=== PATIENT | female | born 1950 | race Caucasian/White ===

== ENCOUNTER 2023-01-31 10:00 | Outpatient (RCR) | payer MEDICARE, SELFPAY | END 2023-03-03 14:11 | disposition home or self-care (01) | PROVIDERS: PCP Family Medicine; Visit Provider Family Medicine | DX: M25.552 Pain in left hip (principal); Z51.89 Encounter for other specified aftercare | CPT/HCPCS: 97110; 97140; 97161; 97530 ==

== ENCOUNTER 2023-12-26 06:49 | Outpatient (CLI) | payer MEDICARE, SELFPAY ==
--- NOTE | 2023-12-26 08:42 | W.ANESCHARGE ---
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
== END 2023-12-26 06:50 | disposition home or self-care (01) ==
LOC: OP CLINIC 06:51
PROVIDERS: PCP Family Medicine; Visit Provider Surgery
DX: R10.32 Left lower quadrant pain (principal); D12.2 Benign neoplasm of ascending colon; D12.3 Benign neoplasm of transverse colon; D12.8 Benign neoplasm of rectum
CPT/HCPCS: 00811; 45385; 88305; 99100; J2704

== ENCOUNTER 2024-09-16 17:35 | Observation (INO) | payer MEDICARE, SELFPAY ==
--- OUTSIDE RECORDS SUMMARY | 2024-09-16 17:37 | XMS_ITS | Clinical Summary ---
Author Organization [facility] Address [address] [place] [phone] Phone Care Team Providers Care Information Security Consultant Name Role Phone Jere Diallo MD Primary Care Provider [phone]- [phone] Allergies Active Allergy Reactions Criticality Noted Date Comments Environmental Rhinitis,Cough,Sneezing Low 8 Erythromycin Hives Low 06/30/2017 Lisinopril Cough Low 06/30/2017 Sulfa Drugs Hives,Other Low 07/04/2017 Sulfa allergy: hives and fever. Per 06/30/17, cause hives. Tetracycline Hives Low 06/30/2017 Medications amLODIPine (NORVASC) 5 MG tablet Take 5 mg by mouth two times a day. 0 8 Active glimepiride (AMARYL) 2 MG tablet Take 1 mg by mouth two times a day. 3 8 Active ACCU-CHEK TIMOTHY PLUS STRIP 1 Strip by Does not apply route every 12 hours. 3 8 Active ACCU-CHEK FASTCLIX LANCETS Misc 1 Lancet by Does not apply route every 12 hours. 3 8 Active losartan (COZAAR) 100 MG tablet Take 100 mg by mouth one time a day. 3 7 Active metFORMIN (GLUCOPHAGE) 1000 MG tablet Take 1,000 mg by mouth two times a day. 3 8 Active pantoprazole (PROTONIX) 40 MG delayed-releas e tablet Take 40 mg by mouth one time a day. 8 Active simvastatin (ZOCOR) 20 MG tablet Take 20 mg by mouth one time a day. 1 8 Active spironolactone (ALDACTONE) 100 MG tablet Take 50 mg by mouth two times a day. 3 8 Active verapamil CR (CALAN SR) 180 MG tablet Take 180 mg by mouth two times a day. 3 8 Active Cholecalcifero l (VITAMIN D) 2000 units Capsule Take 4,000 Units by mouth one time a day. Active aspirin 81 MG tablet Take 81 mg by mouth one time a day. Active clobetasol (TEMOVATE) 0.05 % ointment Apply topically two times a day as needed. Apply the smallest amount that will cover affected area. For feet. Active diphenhydrAMIN E (BENADRYL) 25 MG tablet Take 25 mg by mouth two times a day as needed. Active Calcium Carbonate (CALCIUM 600 OR) Take 2 Tabs by mouth one time a day. Active acetaminophen (TYLENOL) 325 MG tabletIndicati ons:Ovarian mass, left Take 2 Tabs by mouth every four hours as needed for Pain. Limit acetaminophen to 4000 mg per day from all sources. 40 Tab 8 Active Active Problems No known active problems Surgical History Surgery Date Site/Laterality Comments BREAST BIOPSY 03/07/1989 - 03/06/1990 Right BIOPSY OF BREAST, NEEDLE CORE 03/07/2012 - 03/06/2013 Left TUBAL LIGATION 12/25/1979 (at [facility]) PARTIAL HYSTERECTOMY 02/13/2001 (at [facility]) APPENDECTOMY 03/07/2000 - 03/06/2001 HYSTERECTOMY 07/12/2017 Abdomen/N/A Procedure: robotic left salpingo oophorectomy , cystoscopy; Surgeon: Juanita Osman DO; Location: [facility]S UPPER GASTROINTESTINAL ENDOSCOPY 10/14/2016 EGD. COLONOSCOPY 10/14/2016 BREAST LUMPECTOMY Bilateral Medical History Medical History Date Comments History of hysterosalpingogram 1979 Hypertension Diabetes mellitus (HCC) Question able control. Gastroesophageal reflux disease Hyperlipidemia CKD (chronic kidney disease) History of chicken pox Hypokalemia 07/04/2017 Obesity Abnormal liver function tests Pe r 07/04/17, has some persistently abnormal mild liver dysfunction; follows with GI. Hepatic function testing in May was normal. Pelvic mass in female 07/04/2017 Overweight Moderately overw eight. Ovarian mass, left Per 07/04/17, signficant incidentally found left ovarian mass (had been found by Nephrology on eval of her HTN). 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 Gender Identity Not on file Sexual Orientation Not on file Obstetrics History Para Term AB IAB SAB Ectopic Molar Multiple Living Live Births 3 2 2 1 1 Date Outcome GA Total Labor Labor/2nd/3rd Weight Sex Type Anes PTL Alyson A1 A5 Name Clin SAB Term Term Last Filed Vital Signs Vital Sign Reading Time Taken Comments Blood Pressure 124/75 07/27/2017 9:12 AM CDT Pulse 90 07/27/2017 9:12 AM CDT Temperature 36.9 C (98.4 F) 07/27/2017 9:12 AM CDT Respiratory Rate 16 07/12/2017 3:29 PM CDT Oxygen Saturation 96% 07/12/2017 3:29 PM CDT Inhaled Oxygen Concentration - - Weight 102.2 kg (225 lb 6.4 oz) 07/27/2017 9:12 AM CDT Height 156.2 cm (5' 1.5) 07/27/2017 9:12 AM CDT Body Mass Index 41.9 07/27/2017 9:12 AM CDT Plan of Treatment Health Maintenance Due Date Last Done Comments CT Colonography 1949 Cologuard 1949 Colonoscopy 1950 Colorectal Cancer Screening 1949 FIT/FOBT 1949 MEDICARE AWV 1950 Sigmoidoscopy 1949 PERTUSSIS (Standing Order) 1968 TETANUS (Standing Order) 1968 Pneumococcal Vaccine: 50+ yr s (Standing Order) (1 of 1 - PCV) 10/28/1999 Shingrix (Zoster recombinant ) vaccine (Standing Order) (1 of 2) 10/28/1999 MAMMO,SCREEN 10/01/2005 10/01/2004 DXA,FEMALES AGE 65 OR GREATER 2014 COVID-19 Vaccine (2023-2 5 season) 2023 04/23/2020 RSV Vaccination (60+ yrs) (Abrysvo/Arexvy) (1 - 1-dose 75+ series) 2024 HPV Vaccine (Standing Order) Aged Out No longer eligible based on patient's age to complete this topic Hepatitis B Vaccine (Standin g Order) Aged Out No longer eligible b ased on patient's age to complete this topic Procedures Procedure Name Priority Date/Time Associated Diagnosis Comments MAMM SCREENING - RETIRED 10/01/2004 9:22 AM CDT from Last 3 Months or Most Recently Relevant to Health Maintenance Results * MAMM SCREENING (10/01/2004 9:22 AM CDT) MAMM SCREENING This Document is currently in Final Status Exam Signs and Symptoms for Radiological Exam from [facility]: * SCREEN MAMMOGRAM: Comparison study is from 10 August 2002. Cluster of calcifications in the left upper outer breast need compression magnification views. There are a few benign appearing calcifications scattered throughout the breast elsewhere. Diffuse fibrocystic appearance. No architectural distortion. Questionable increasing density in the right medial breast on the CC needs compression. BIRADS 0. Incomplete: Need additional imaging evaluation of the right breast for compression of the density and in the left breast for compression magnification views. Computer aided detection system utilized prior to interpretation. Exam interpreted at: [facility], [place] The Interpreting Physician is JULIO JAMES Exam was completed at [facility] Anatomical Region Laterality Modality Mammography 10/01/2004 9:22 AM CDT Jere Diallo MD [facility] MAMMOGRAPHY ORDERABLES Final Result from Last 3 Months or Most Recently Relevant to Health Maintenance Insurance [employer] BLUE MEDICARE COST PART A&B Advance Directives For more information, please contact: [phone] Documents on File Type Date Recorded Patient Burn Center Nurse Expl anation Advance Directive 08/10/2017 9:24 AM ADVANC E DIRECTIVE Care Teams Information Security Consultant Relationship Specialty Start Date End Date Jere Diallo MD [address] [place] [id number] PCP - General 05/18/01
--- OUTSIDE RECORDS SUMMARY | 2024-09-16 17:37 | XMS_ITS | Clinical Summary ---
Author Organization [facility] Address [address] [place] [id number] Care Team Providers Care Encoding Machine Operator Name Role Phone Tamie Le MD Primary Care Provider Allergies Active Allergy Reactions Criticality Noted Date Comments Erythromycin Hives Low 06/30/2017 Levonorgestrel-Ethinyl Estrad Cough,Runny Nose,Other - Describe In Comment Field Low 07/11/2017 Lisinopril Cough Low 06/30/2017 Sulfa (Sulfonamide Antibiotics) Hives,Other - Describe In Comment Field Low 07/04/2017 Sulfa allergy: hives and fever. Per 06/30/17, cause hives. Tetracycline Hives Low 06/30/2017 Medications calcium carbonate (CALCIUM 600 ORAL) Take 2 Tablets by mouth once daily. Active cholecalciferol (VITAMIN D3) 2,000 unit capsule Take 4,000 units by mouth once daily. Active blood-glucose meterIndications:T ype 2 diabetes mellitus without complication, without long-term current use of insulin (HC) As directed. Dispense meter, test strips, lancets covered by pt ins. 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 May use up to 14 days continuously unless otherwise directed to do this more. 118 mL 2 02/24/20 23 Active nystatin 100,000 unit/gram creamIndications:C andidal intertrigo Apply topically to affected area(s) two times daily. 60 g 3 11/08/19 24 Active lancets (Microlet Lancet)Indications :Type 2 diabetes mellitus without complication, without long-term current use of insulin (HC) Dispense item covered by pt ins. E11.9 NIDDM type II - Test 1 time/day 100 Each 3 02/14/20 24 Active blood sugar diagnostic (Contour Next Test Strips) stripIndications:T ype 2 diabetes mellitus without complication, without long-term current use of insulin (HC) Dispense item covered by pt ins. E11.9 NIDDM type II - Test 1 time/day 100 Each 3 02/21/20 24 Active semaglutide (Ozempic) 2 mg/3 mL subcutaneous penIndications:Typ e 2 diabetes mellitus without complication, without long-term current use of insulin (HC) Inject 0.5 mg subcutaneous once weekly. 9 mL 1 05/09/19 25 Active pantoprazole (PROTONIX) 40 mg delayed-release tabletIndications: Chronic GERD Take 1 Tablet (40 mg) by mouth once daily. 90 Tablet 3 05/09/19 25 Active metoprolol succinate (Toprol XL) 50 mg sustained-release tabletIndications: HTN (hypertension) Take 1 Tablet (50 mg) by mouth once daily. 90 Tablet 1 05/09/19 25 Active losartan (COZAAR) 100 mg tabletIndications: HTN (hypertension) Take 1 Tablet (100 mg) by mouth once daily. 90 Tablet 1 05/09/19 25 Active amLODIPine (NORVASC) 5 mg tabletIndications: HTN (hypertension) Take 1 Tablet (5 mg) by mouth once daily. 90 Tablet 1 05/09/19 25 Active metFORMIN (GLUCOPHAGE) 1,000 mg tabletIndications: Type 2 diabetes mellitus without complication, without long-term current use of insulin (HC) Take 1 Tablet (1,000 mg) by mouth two times daily with meals. 180 Tablet 1 05/09/19 25 Active atorvastatin (LIPITOR) 20 mg tabletIndications: Type 2 diabetes mellitus without complication, without long-term current use of insulin (HC),Hyperlipidemi a, unspecified hyperlipidemia type Take 1 Tablet (20 mg) by mouth once daily in the evening. 90 Tablet 3 05/09/19 25 Active aspirin (ECOTRIN) 81 mg enteric coated tabletIndications: Type 2 diabetes mellitus without complication, without long-term current use of insulin (HC) Take 1 Tablet (81 mg) by mouth once daily with a meal. 100 Tablet 3 05/09/19 25 Active nystatin powder powderIndications: Candidal intertrigo Apply 1 Strip topically to affected area(s) three times daily. 60 g 08/08/19 25 Active Active Problems Problem Noted Date Diagnosed Date Gallbladder polyp 06/12/2024 Overview (06/12/2024): Saw Dr. Mayo. Stable 6 month US I saw this patient last fall for evaluation of gallbladder polyp. We decided to continue with gallbladder ultrasounds. Her recent ultrasound 6 months from the first one showed that the polyp is 3 mm (previously measuring 5 mm). We communicated those results to the patient. I would recommend getting an ultrasound in 1 year, 3 years, and 5 years. If the polyp disappears, you can stop doing surveillance ultrasounds. Osteopenia 03/13/2024 Elevated LFTs 11/08/2023 Candidal intertrigo 11/08/2023 Obesity, morbid 10/26/2022 Depression, recurrent 07/21/2022 Type 2 diabetes mellitus wit hout complication, without long-term current use of insulin 12/17/2021 Stage 3a chronic kidney disease 12/17/2021 Chronic GERD 12/17/2021 HTN (hypertension) 12/17/2021 Hyperlipidemia 12/17/2021 Encounters Date Type Department Care Team Description 08/22/2024 10:00 AM CDT Ancillary Procedure [facility] [address] [place] [address] 08/22/2024 Travel 08/07/[address] [address] Tamie Le MD Health Maintenance Update 08/06/[address] [address] Tamie Le MD Refill Request (Nystop Top Pwdr 100,000 60gm) 07/26/[address] [address] Tamie Le MD Refill Request (Semaglutide (Ozempic) 2 mg/3 mL subcutaneous pen ) 07/26/2024 Telephone [facility] [address] [facility] [place] [address] Tamie Le MD Questions 07/26/2024 Refill [facility] [address] [facility] [place] [address] Tamie Le MD Refill Request (Amlodipine) 06/18/2024 Telephone [facility] [address] [facility] [place] [address] Tamie Le MD Prior Authorization (blood sugar diagnostic (Contour Next Test Strips) strip Approved June 18, 2024 to June 18, 2025) from Last 3 Months Immunizations Immunization Administration Dates Next Due COVID-19 VACCINE SPIKEVAX (M ODERNA 50MCG/0.5ML) 12YO+ PFS 05/22/2024,08/31/2023 COVID-19 vaccine (Pfizer-Bio NTech 30mcg/0.3mL) 12YO+ BIVALENT PF, MDV 12/17/2021 COVID-19 vaccine (Pfizer-Bio NTech 30mcg/0.3mL) 12YO+ UGO-SUCROSE PF, MDV 06/16/2021 COVID-19 vaccine (Pfizer-Bio NTech 30mcg/0.3mL) PF, MDV 12/11/2020,05/14/2020,04/23/2020 DT (Age < 7 years) 06/22/1955 Hepatitis A (Adult) 09/30/2021,04/02/2021 Hepatitis B (Adult) 12/07/1996,07/09/1996,1996 Inactivated Polio Vaccine 06/22/1955 Influenza, High-dose Inactivated 024,01/15/2019,01/06/2018,12/24,12/22/2015,12/23/2014 Influenza, High-dose Quadriv alent Inactivated 01/06/2021,02/01/2020 Influenza, IIV3 (Age >=3 years) 12/05/2012,03/23,12/09/2008 Influenza, IIV4 (=>6mos) MDV 03/18/2014 Influenza, Inactivated AIIV4 (Age 65+ Years) Preserv Free 12/08/2022,01/06/2022 MMR 11/21/2007 Pneumococcal Conj 20-valent (Prevnar 20) 07/21/2022 Pneumococcal Poly,23-Valent (Pneumovax) 11/21/2007 Pneumococcal conj 13-Valent (Prevnar 13) 11/25/2014 RSV, Bivalent Vaccine Recons tituted (Abrysvo 120MCG/0.5mL) 12/14/2022 Td, Preservative Free (age >= 7 Years) 5 Tdap 05/24/2022,05/22/2012 Zoster (Shingrix-RZV, recombinant) 06/09/2021, Zoster (Zostavax-ZVL, live) 06/09/2012 Family History Medical History Relation Name Comments Diabetes Father Hypertension Father COPD Mother Diabetes Mother Hypertension Mother Cancer-breast No Family History Cancer-ovarian No Family History Relation Name Status Comments Father Mother Social History Tobacco Use Types Packs/Day Years Used Date Smoking Tobacco: Never Smokeless Tobacco: Never Tobacco Cessation:Counseling Given: Yes Alcohol Use Standard Drinks/Week Comments Yes 0 (1 standard drink = 0.6 oz pur e alcohol) less than monthly PHQ-2 Answer Date Recorded PHQ-2 TOTAL SCORE 0 02/07/2024 Social Connections Answer Date Recorded Do you often feel lonely or isolated from those around you? 0 02/07/2024 Alcohol Use Answer Date Recorded How often do you have a drink containing alcohol ? 1 04/29/2023 How many drinks containing a lcohol do you have on a typical day when you are drinking? 0 04/29/2023 How often do you have five or more drinks on one occasion? 0 04/29/2023 Financial Resource Strain Answer Date R ecorded Difficulty of Paying Living Expenses 3 02/07/2024 Difficulty of Paying Living Expenses Not on file 02/07/2024 Food Insecurity Answer Date Recorded Do you worry your food will run out before you are able to buy more? 1 02/07/2024 Transportation Needs Answer Date Record ed Does lack of transportation keep you from medica l appointments? 1 02/07/2024 Does lack of transportation keep you from work, meetings or getting things that you need? 1 02/07/2024 Housing Stability Answer Date Recorded What is your housing situation today? 1 02/07/2024 Utilities Answer Date Recorded Do you have trouble paying f or utilities (for example, heat, electricity, water, phone)? 1 02/07/2024 Comments No Sex and Gender Information Value Date Recorded Sex Assigned at Not on file Legal Sex Female 3:25 PM CDT Gender Identity Not on file Sexual Orientation Not on file Obstetrics History Para Term AB IAB SAB Ectopic Multiple Livin g Live Births 3 2 2 1 1 Date Outcome GA Total Labor Labor/2nd/3rd Weight Sex Type Anes PTL Alyson A1 A5 Name Clin SAB Term Term Last Filed Vital Signs Vital Sign Reading Time Taken Comments Blood Pressure 142/74 05/22/2024 10:26 AM CDT Pulse 72 05/22/2024 10:26 AM CDT Temperature 36.8 C (98.3 F) 01/02/2024 3:23 PM CDT Respiratory Rate - - Oxygen Saturation 98% 05/08/2024 10:03 AM [facility] DELIVERY Inhaled Oxygen Concentration - - Weight 84.6 kg (186 lb 6.4 oz) 05/08/2024 10:03 AM [facility] DELIVERY Height 154.5 cm (5' 0.83) 02/07/2024 9:32 AM CS T Body Mass Index 35.42 02/07/2024 9:32 AM [facility] DELIVERY Plan of Treatment Upcoming Encounters Date Type Department Care Team (Late st Contact Info) Description 12/04/2024 9:10 AM CDT Office Visit [facility] [address] [place] [address] Tamie Le MD [address] [place] [address] 02/08/2025 9:10 AM [facility] DELIVERY Office Visit [facility] [address] [place] [address] Tamie Le MD [address] [place] [address] Health Maintenance Due Date Last Done Comments Hepatitis C screening for ag e 18-79 10/28/1968 Influenza Vaccine (#1) 2024 , 12/08/2022, 01/06/2022, Additional history exists BMI (ht and wt on same day) for age 18+ 02/06/2025 02/07/2024, 04/29/2023, 02/02/2023, Additional history exists Medicare Wellness for age 65+ 02/07/2025, 02/02/2023, 01/06/2022 Depression screening for age 12+ 02/08/2025 02/09/2024, 02/07/2024, 02/03/2023, Additional history exists Mammogram for age 45-75 08/22/2025 08/23/19, 08/22/2023, 08/09/2022, Additional history exists Lipids for age 45-75 02/06/2029 02/07/2024, 02/02/2023, 01/06/2022 Tetanus booster 05/24/2032 05/24/2022, 05/05, 12/17/2004 Colonoscopy through age 75 12/26/203312/26, 12/26/2023, 10/14/2016 (Completed outside of [facility]), Additional history exists Hepatitis B series for 19+ Completed 12/07, 07/09/1996, 06/08/1996 Zoster (shingles) series for age 50+ Completed 06/09/2021, 04/02/2021, 06/09/2012 Pneumococcal series for age 50+ Completed 07/21/2022, 11/25/2014, 11/21/2007 RSV vaccine for adults or Completed 12/14/2022 DEXA/DXA scan for age 65+ Completed 2024, 10/22/2021 (Completed outside of [facility]) COVID-19 vaccine series Completed 05/23/19, 12/07/2023, 08/31/2023, Additional history exists Procedures Procedure Name Priority Date/Time Associated Diagnosis Comments XR MAMMO EILEEN BILAT SCREEN Routine 08/22/2024 10:11 AM CDT Visit for screening mammogram XR DXA BONE DENSITY 2 SITES AXIAL Routine 03/12/2024 10:06 AM [facility] DELIVERY Menopause LIPID PANEL W REFLEX MEASURED LDL Routine 02/07/2024 9:14 AM [facility] DELIVERY Hyperlipidemia, unspecified hyperlipidemia type COLONOSCOPY DIAGNOSTIC Routine 12/27/2023 7:52 AM CDT Left lower quadrant abdominal pain from Last 3 Months or Most Recently Relevant to Health Maintenance Results * XR MAMMO EILEEN BILAT SCREEN (08/22/2024 10:11 AM CDT) Anatomical Region Laterality Modality BREASTS, Breast Left, Breast Right Bilateral Mammography Impressions 08/22/2024 2:00 PM CDT There is no radiographic evidence for malignancy. Recommend annual mammograms. MAMMOGRAM ASSESSMENT: ACR 1 Negative PATIENTS: You will also receive a letter with your examination results in an easy to read format. If you have questions about your results, please contact your referring provider. Narrative 08/22/2024 2:00 PM CDT For Patients: As a result of the Century Cures Act, medical imaging exams and procedure reports are released immediately into your electronic medical record. You may view this report before your referring provider. If you have questions, please contact your health care provider. XR MAMMO EILEEN BILAT SCREEN [[id number]] CLINICAL HISTORY: This is an asymptomatic 73 y.o. patient. INDICATION FOR EXAM: Mammogram Screening. TECHNIQUE: CC and MLO views were obtained. This study was evaluated with the assistance of Computer-Aided Detection. Breast Tomosynthesis was used in interpretation. COMPARISON FILM: Yes 08/22/23 [facility] 08/09/22 [facility] FINDINGS: The breasts are heterogeneously dense, which may obscure small masses. There are no dominant masses, suspicious micro calcifications or areas of architectural distortion. us Tamie Le MD MAMMO Final Resul t * (ABNORMAL) XR DXA BONE DENSITY 2 SITES AXIAL (03/12/2024 10:06 AM [facility] POST DELIVERY) Anatomical Region Laterality Modality Spine, HIPS, HIPL, HIPR Other Impressions 03/13/2024 1:54 PM [facility] DELIVERY Osteopenia. RECOMMENDATIONS: The National Osteoporosis Foundation recommends pharmacologic treatment for patients with T-scores of -2.5 or less, patients with prior history of fragility fractures, or patients with 10-year probability of greater than 3% at hips or greater than 20% of suffering major osteoporotic fractures. Recommend continued optimization of calcium and vitamin D intake through dietary means and/or supplementation and regular exercise. Repeat scan recommended in 3-5 years. Evelyn Lam PA-C [facility] 03/13/2024 Narrative 03/13/2024 1:54 PM PARCEL POST DELIVERY For Patients: Results are automatically released to your [facility] ([employer]) account once available, in compliance with federal regulations. This means that you may see your results before your provider has had a chance to review them. Please allow 2-3 business days for your provider to comment on the results. XR DXA Bone Mineral Density (BMD) EXAM LOCATION: [address] [address] PATIENT NAME: Alda Diaz DATE OF : 1950 EXAM DATE: 03/12/2024 REQUESTING PROVIDER: Tamie Le MD GENDER AT : female HEIGHT: 5' 0.83 (02/07/2024) WEIGHT: 194 lb 6.4 oz (02/07/2024) MENOPAUSAL STATUS: Postmenopausal RACE/ETHNICITY: White RISK FACTORS: White Race CURRENT MEDICATION FOR BONE LOSS: NONE INDICATION: Follow-up of existing osteopenia and Post-Menopause COMPARISON DATE(S): None DXA scans are compared to prior studies for a patient only when the two (or more) studies were performed on the same scanner. It is not possible to compare data generated on one scanner to data from another because there are not standards in DXA equipment. This applies even if the two scanners are made by the same cash applications coordinator. PROCEDURE: Dual-energy x-ray absorptiometry performed with routine technique. Reporting is completed in the form of a T-score. The T-score represents the standard deviation from peak bone mass based on young healthy adult. A Z-score is used for diagnosis in premenopausal women, and for men under the age of 50. FINDINGS: RESULT LUMBAR SPINE L1 - L2 BMD: 1.235 g/cm2 T-Score: + 0.5 Z-Score: + 1.5 Change from prior: None RESULTS FEMUR Left femoral neck BMD: 0.890 g/cm2 T-Score: - 1.1 Z-Score: + 0.3 Change from prior: None Right femoral neck BMD: 0.922 g/cm2 T-Score: - 0.8 Z-Score: + 0.6 Change from prior: None Left hip BMD: 0.129 g/cm2 T-Score: + 0.2 Z-Score: + 1.3 Change from prior: None Right hip BMD: 0.970 g/cm2 T-Score: - 0.3 Z-Score: + 0.8 Change from prior: None WHO criteria: Normal: T-score at or above -1 SD Osteopenia: T-score between -1.1 and -2.4 SD Osteoporosis: T-score at or below -2.5 SD FRAX RISK CALCULATION (USED FOR OSTEOPENIA ONLY): 10-year probability of major osteoporotic fracture: 8.9%. 10-year probability of hip fracture: 1.3%. us Tamie Le MD DEXA Final Resul t * (ABNORMAL) LIPID PANEL W REFLEX MEASURED LDL (02/07/2024 9:14 AM PARCEL POST DELIVERY) [facility] CHOLESTEROL, TOTAL 106 <200 mg/dL [facility] HDL CHOLESTEROL 44(L) > OR = 50 mg/dL [facility] TRIGLYCERIDES 100 <150 mg/dL [facility] LDL-CHOLESTEROL 43 mg/dL (calc) [facility] Comment: Reference range: <100 Desirable range <100 mg/dL for primary prevention; <70 mg/dL for patients with CHD or diabetic patients with > or = 2 CHD risk factors. LDL-C is now calculated using the Elaine calculation, which is a validated novel method providing better accuracy than the Friedewald equation in the estimation of LDL-C. Og SS et al. AGUSTIN. 2013;310(19): 1500-4738 (http://education.ZYB/faq/VMI616) CHOL/HDLC RATIO 2.4 <5.0 (calc) [facility] [place] NON HDL CHOLESTEROL 62 <130 mg/dL (calc) [facility] Comment: For patients with diabetes plus 1 major ASCVD risk factor, treating to a non-HDL-C goal of <100 mg/dL (LDL-C of <70 mg/dL) is considered a therapeutic option. Blood BLOOD SPECIMEN / Unknown 02/07/2024 9:14 AM PARCEL POST DELIVERY 02/07/2024 9:15 AM [facility]CEL POST DELIVERY Tamie Le MD CHEMISTRY Final Resul t [facility] [facility] [address] [place] [address], [facility] [address] [place] [address] * COLONOSCOPY SCREENING (12/26/2023 12:00 AM CDT) Jose F Mayo MD GI PROCEDURE ORD Final Res ult from Last 3 Months or Most Recently Relevant to Health Maintenance Insurance [facility] MEDICARE ADVANTAGE MR Advance Directives Documents on File Type Date Recorded Patient Endodontic Assistant Expl anation Healthcare Directive 04/22/2022 1:57 PM HE ALTHCARE DIRECTIVE [facility] 04/22/2022 Care Teams Encoding Machine Operator Relationship Specialty Start Date End Date Tamie Le MD [address] [place] [address] PCP - General Family Practice 07/28/21
[2024-09-16 17:44] VITALS: BP 180/82; PULSE 90; RESP 18; TEMP 36.7; O2SAT 90; BMI 35.0
--- NOTE | 2024-09-16 18:34 | ED_ITS ---
HPI - Neuro Symptoms/Deficit General Time Seen by Provider: 18:34 Date Seen: 09/16/24 Chief Complaint: Neuro Symptoms/Altered Deficit Stated Complaint: memory loss as of today Time Seen by Provider: 09/16/24 18:20 Source: patient, family and RN notes reviewed Mode of arrival: ambulatory Limitations: no limitations History of Present Illness HPI Narrative: This 73-year-old female is accompanied in by family with concern of confusion. Family notes that she has had significant memory loss, feel like symptoms started today. She does reside with her vzmxwnqj-ao-orb and son whom are present with her. Her pillowcase is intact, she did not take her pills listed for today. She has no recollection if she took them or not. She has not been sick with anything, no fevers, no trauma or falls noted. She did have an episode transient global amnesia last fall in [place]. She knows it is the year 2019 for 2024, thinks it is probably September because she has not had her birthday yet. She does not remember Easter or [place] from this past year, does have some recollection of Thanksgiving. She does not remember events from this last week, does not remember going anywhere with her family. She believes the president is [place]. She knows that she is confused, knows that she can not remember things but does not seem to cause her significant anxiety at this time. She is quite pleasant. Related Data Allergies Allergy/AdvReac Type Severity Reaction Status Date / Time erythromycin base Allergy Verified 12/26/23 09:30 levonorgestrel Allergy Verified 12/26/23 09:30 lisinopril Allergy Verified 12/26/23 09:30 Sulfa (Sulfonamide Allergy Verified 12/26/23 09:30 Antibiotics) tetracycline Allergy Verified 12/26/23 09:30 Review of Systems Status of ROS: Reports: 6 or more systems reviewed and unremarkable except as noted in History and below Exam Const: Vital Signs, click to edit/add: Vital Signs - 24 hr 09/16/24 17:44 09/16/24 19:33 Temperature 98.1 F Pulse Rate [Right Radial] 90 93 Respiratory Rate 18 16 Blood Pressure [Ri ght Upper Arm] 180/82 H 145/84 H Pulse Oximetry 90 96 Oxygen Delivery Me thod Room Air Room Air This 73-year-old female is very pleasant, alert, interactive. Please see under HPI for some of her memory discussion. Sclera clear, extraocular muscles intact, symmetrical facial function, speech is normal. No visual changes on gross confrontation. Lungs are clear, good air entry, no wheezing or crackles, no tachypnea, no accessory muscle use. CV regular rate and rhythm, no murmur, normal S1-S2, no S3-S4. Abdomen is soft, nontender, nondistended, no organomegaly, rebound or guarding. Patient reported the was ambulatory into the ED. Strength is 5/5 and symmetric throughout upper and lower extremities. Normal light touch sensation. No dysmetria noted, no tremors. 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 Will do a head CT, get basic labs. She is hemodynamically stable. Doubtful that this is an active ischemic stroke. She has no other focal deficits, just memory. Reevaluation(s) Time of Reevaluation #1: 19:25 Reevaluation #1: Did update daughter and a and son about neurology recommendations for hospitalization overnight. We discussed MRI of her brain tomorrow, formal neurology consult from [facility]. They are in agreement with this. I will certainly update them of any abnormalities or concerns of pending tests that are coming back here in the ER. Consultations Consultation #1: Did review case with Dr. Jaime, he is aware that we have a head CT pending. Did review that this patient was diagnosed with episode of transient global amnesia this past year. He wonders if there could be dementia. He thinks patient should be kept overnight, do MRI a brain noncontrast tomorrow and they will do a consult on her tomorrow. Will let them know an update the hospitalist. If there is anything concerning on her head CT or anything else, will update him in the interim. Time: 18:59 Consultation #2: Did briefly update the hospitalist Dr. Goel regarding the neurology recommendations. He will see this patient when he is next able to. Time: 19:26 Vital Signs Vital signs: Initial Vital Signs Temperature 98.1 F 09/16/24 17:44 Temperature Source Temporal Artery Scan 09/16/24 17:44 Pulse Rate 90 07/13/25 17:44 Pulse Rhythm Regular 09/16/24 17:44 Pulse Strength 3+ Normal 09/16/24 17:44 Respiratory Rate 18 09/16/24 17:44 Blood Pressure 180/82 H 09/16/24 17:44 Blood Pressure Mean 114 H 09/16/24 17:44 Blood Pressure Position Sitting 09/16/24 17:44 Pulse Oximetry 90 09/16/24 17:44 Oxygen Delivery Method Room Air 09/16/24 17:44 Vital Signs Temperature 98.1 F 09/16/24 17:44 Pulse Rate 90 09/16/24 17:44 Respiratory Rate 18 09/16/24 17:44 Blood Pressure 180/82 H 09/16/24 17:44 Pulse Oximetry 90 09/16/24 17:44 Oxygen Delivery Method Room Air 09/16/24 17:44 Temperature 98.1 F 09/16/24 17:44 Pulse Rate 93 09/16/24 19:33 Respiratory Rate 16 09/16/24 19:33 Blood Pressure 145/84 H 09/16/24 19:33 Pulse Oximetry 96 09/16/24 19:33 Oxygen Delivery Method Room Air 09/16/24 19:33 MDM - Neuro Symptoms/Deficit Lab Data Attestation: I reviewed the patient's lab results. Labs: Lab Results 09/16/24 Range/Units 18:53 WBC 9.52 (4.50-11.00) K/uL RBC 4.42 (4.00-5.20) m/uL Hgb 13.8 (12.0-16.0) gm/dL Hct 40.8 (33.0-51.0) % MCV 92 (80-100) fL MCH 31 (26-34) pg MCHC 34 (32-36) gm/dL RDW Coeff of Chris 11.4 L (11.5-15.5) % Plt Count 177 (140-440) K/uL Neut % (Auto) 71.0 (42.0-72.0) % Lymph % (Auto) 20.8 (20-44) % [place] % (Auto) 6.4 (0.0-11.0) % Eos % (Auto) 1.3 (0.0-7.0) % Baso % (Auto) 0.3 (0.0-3.0) % Neut # (Auto) 6.76 (1.7-7.0) K/uL Lymph # (Auto) 1.98 (0.90-2.90) K/uL [place] # (Auto) 0.60 (0.00-0.90) K/UL Eos # (Auto) 0.12 (0.00-0.50) K/uL Baso # (Auto) 0.03 (0.00-0.30) K/uL Abs Immat Gran (auto) 0.02 (0.00-0.30) K/uL Imm/Tot Granulo (auto) 0.2 % Sodium 138 (135-149) mmol/L Potassium 3.7 (3.6-5.1) mmol/L Chloride 105 (96-114) mmol/L Carbon Dioxide 23 (20-32) mmol/L Anion Gap 10 (7-15) mEq/L BUN 20 (7-30) mg/dL Creatinine 1.1 (0.5-1.5) mg/dL Estimated Creat Clear 35.49 Estimated GFR 53 ml/min Glucose 95 (60-115) mg/dL Lactate 2.6 H (0.5-1.9) mmol/L Calcium 10.1 (8.4-10.6) mg/dL Total Bilirubin 0.7 (0.1-1.5) mg/dL AST 39 H (12-35) U/L ALT 32 (4-35) U/L Alkaline Phosphatase 82 (40-150) U/L C-Reactive Protein < 0.5 L (0.5-1.0) mg/dL Total Protein 7.0 (6.0-8.3) g/dL Albumin 4.2 (3.3-5.0) g/dL Imaging Data CT scan - head: Attestation: I have reviewed the pertinent imaging results. Radiologist's impression: Patient: JEANIE SOTO Facility:?[facility] Patient ID:?[id number] Site Patient ID:?[id number]. Site :?[id number] Study:?CT-Head W/O-09/16/2024 7:29:04 PM Ordering Physician:Yue Dallas Final Report: INDICATION: Memory loss. TECHNIQUE: Non-contrast CT of the head is submitted. No comparisons. FINDINGS: The ventricles, sulci and gyri are of normal size, shape and contour. Midline structures are centrally located. No convincing evidence of intra- or extra- axial fluid collections. IMPRESSION: 1. No radiographic evidence of acute intracranial abnormalities. Please note that all CT scans at this facility use dose modulation, iterative reconstruction, and/or weight-based dosing when appropriate to reduce radiation dose to as low as reasonably achievable. Dictated by Aguilar Gonzalez MD @ 09/16/2024 7:55:47 PM (Electronic Signature) Discharge Plan Discharge Clinical Impression: Amnesia memory loss Patient Disposition: Admitted As Observation Condition: Unchanged
--- NOTE | 2024-09-16 18:43 | CRLHL7_ITS ---
For Patients: As a result of the Century Cures Act, medical imaging exams and procedure reports are released immediately into your electronic medical record. You may view this report before your referring provider. If you have questions, please contact your health care provider. INDICATION: Memory loss. TECHNIQUE: Non-contrast CT of the head is submitted. No comparisons. FINDINGS: The ventricles, sulci and gyri are of normal size, shape and contour. Midline structures are centrally located. No convincing evidence of intra- or extra-axial fluid collections. IMPRESSION: 1. No radiographic evidence of acute intracranial abnormalities. Please note that all CT scans at this facility use dose modulation, iterative reconstruction, and/or weight-based dosing when appropriate to reduce radiation dose to as low as reasonably achievable. Dictated by Aguilar Gonzalez MD @ 09/16/2024 7:55:47 PM (Electronically Signed)
[2024-09-16 19:01] LABS: Lactate* 2.6 mmol/L (0.5-1.9)
[2024-09-16 19:07] LABS: Hematocrit 40.8 % (33.0-51.0); Hemoglobin* 13.8 gm/dL (12.0-16.0); Immature Granulocytes Abs Auto 0.02 K/uL (0.00-0.30); Immature Granulocytes Pct Auto 0.2 %; Lymphocytes Absolute Auto 1.98 K/uL (0.90-2.90); Mean Corpuscular HGB Conc 34 gm/dL (32-36); Mean Corpuscular Hemoglobin 31 pg (26-34); Mean Corpuscular Volume 92 fL (80-100); RDW Coefficient of Variation % 11.4 % (11.5-15.5); Red Blood Count 4.42 m/uL (4.00-5.20); White Blood Count* 9.52 K/uL (4.50-11.00)
[2024-09-16 19:13] LABS: Slide Review Reflex No
[2024-09-16 19:21] LABS: Albumin* 4.2 g/dL (3.3-5.0); Chloride* 105 mmol/L (96-114); Potassium* 3.7 mmol/L (3.6-5.1); Sodium* 138 mmol/L (135-149)
[2024-09-16 19:24] LABS: Alanine Aminotransferase* 32 U/L (4-35); Anion Gap 10 mEq/L (7-15); Aspartate Amino Transferase* 39 U/L (12-35); Blood Urea Nitrogen* 20 mg/dL (7-30); Carbon Dioxide* 23 mmol/L (20-32); Creatinine* 1.1 mg/dL (0.5-1.5); Est. Creatinine Clearance* 35.49; Estimated Glomerular Filt Rate 53 ml/min
[2024-09-16 19:25] LABS: Alkaline Phosphatase* 82 U/L (40-150); Bilirubin Total* 0.7 mg/dL (0.1-1.5); Calcium* 10.1 mg/dL (8.4-10.6); Glucose* 95 mg/dL (60-115); Total Protein* 7.0 g/dL (6.0-8.3)
[2024-09-16 19:33] VITALS: BP 145/84; PULSE 93; RESP 16; O2SAT 96
[2024-09-16 20:22] LABS: TSH With Reflex to FT4* 0.544 uIU/mL (0.270-4.200)
[2024-09-16 20:46] LABS: Ethanol* < 0.01 % (0.01-0.03)
[2024-09-16] MEDS: METFORMIN 1,000 MG TABLET 1000 MG PO (21:30)
[2024-09-16] MEDS: SODIUM CHLORIDE 0.9 % (FLUSH) 10 ML SYRINGE 5 ML IVF (21:31)
--- NOTE | 2024-09-16 21:39 | PM.IMHP1 ---
Assessment and Plan Assessment and plan (1) Transient global amnesia: Problem comment: Family reports an episode in November 2023 similar to current episode but of shorter duration. Seen in [facility] ED in [place] Status: Acute (2) Hypertension: Status: Acute (3) Diabetes mellitus type 2, controlled: Problem comment: Hemoglobin A1c in May 2024 was 6.7 Status: Acute Plan 73-year-old female admitted with an episode of what appears to be transient global amnesia. This is probably a recurrent episode for her. Tele radiology will consult tomorrow after MRI of the brain. Ongoing monitoring of vital signs, diabetes, neurologic status in the meantime. Total Time Spent Total Time Spent: Total time spent is 75 minutes in reviewing outside records, coordination of care and discussing with patient and family ongoing evaluation management of amnesia Hospitalist- H&P: HPI History of Present Illness Date Seen: 09/16/24 Chief complaint: memory loss as of today Narrative: Alda Diaz is a 73 year old female with diabetes, hypertension, history of transient global amnesia presents with onset this afternoon of another episode of amnesia. She lives with her son and omkoxpau-wu-wms. She seemed to be fine when she got up this morning. She had breakfast then went outside to [place] the garden and came back in to the house and folded some laundry. She then went to take a nap. She had an emesis or 2 and then finished her nap around 4:00 a.m. when she awoke from her nap she did not remember anything that happened that day or the past few days. Other than her emesis she had not had any other symptoms of illness. She did feel hot after coming in from weeding the garden. She did not check her blood sugar during the day today. Unclear if she took her medications. Family notes that her medications still in her pillbox from today. Family reports she had an episode of transient global amnesia while she was in [place] last November. She went to the emergency department at [facility]. Her symptoms cleared while she was there and she was discharged to follow-up with a neurologist in the [facility]. Family reported that she did that but I am currently unable to view records from [facility] or a neurology visit from last fall. Review of Systems Narrative: At this time she reports feeling fine without any concerns. Family is not aware that she had any illnesses leading up to this event except as noted above [facility] Medical History (Updated 09/16/24 @ 21:46 by Idris Goel MD) Gallbladder polyp ?K82.4 - Cholesterolosis of gallbladder (ICD-10) Obesity ?E66.9 - Obesity, unspecified (ICD-10) Depression ?F32.A - Depression, unspecified (ICD-10) Hyperlipidemia ?E78.5 - Hyperlipidemia, unspecified (ICD-10) Stage 3 chronic kidney disease ?N18.30 - Chronic kidney disease, stage 3 unspecified (ICD-10) NAFLD (nonalcoholic fatty liver disease) ?K76.0 - Fatty (change of) liver, not elsewhere classified (ICD-10) Transient global amnesia ?G45.4 - Transient global amnesia (ICD-10) Hypertension ?I10 - Essential (primary) hypertension (ICD-10) Diabetes mellitus type 2, controlled ?E11.9 - Type 2 diabetes mellitus without complications (ICD-10) Surgical History (Updated 09/16/24 @ 21:46 by Idris Goel MD) History of total abdominal hysterectomy and bilateral salpingo-oophorectomy ?Z90.710 - Acquired absence of both cervix and uterus (ICD-10) ?Z90.722 - Acquired absence of ovaries, bilateral (ICD-10) ?Z90.79 - Acquired absence of other genital organ(s) (ICD-10) History of appendectomy ?Z90.49 - Acquired absence of other specified parts of digestive tract (ICD-10) Family History (Updated 09/16/24 @ 21:47 by Idris Goel MD) Mother COPD (chronic obstructive pulmonary disease) Diabetes High blood pressure Father Diabetes High blood pressure Social History (Updated 09/16/24 @ 21:48 by Idris Goel MD) Narrative: Previously lived in [place] now living with son Nghia and vbbetdbv-hc-eat, Melanie. Son Nghia and daughter Ge are healthcare power of traffic law attorney. Code status is full. She does not smoke. She rarely drinks alcohol. Meds Home Medications and Allergies Home Medications ?Medication ?Instructions ?Recorded ?Confirmed ?Type amlodipine 10 mg tablet 10 mg PO DAILY 09/16/24 History Held on 09/16/24. Instructions: . amlodipine 5 mg tablet 5 mg PO DAILY 09/16/24 09/16/24 History aspirin 81 mg tablet,delayed 81 mg PO DAILY 09/16/24 09/16/24 History release atorvastatin 20 mg tablet 20 mg PO DAILY 09/16/24 09/16/24 History losartan 100 mg tablet 100 mg PO DAILY 09/16/24 09/16/24 History metformin 1,000 mg tablet 1,000 mg PO BID 09/16/24 09/16/24 History metoprolol succinate 50 mg 50 mg PO DAILY 09/16/24 09/16/24 History tablet,extended release 24 hr nystatin 100,000 unit/gram topical topical BID 09/16/24 History cream semaglutide 0.25 mg or 0.5 mg (2 0.5 mg subcut .weekly 09/16/24 09/16/24 History mg/3 mL) subcutaneous pen injector ([email or web address]) Allergies Allergy/AdvReac Type Severity Reaction Status Date / Time erythromycin base Allergy Verified 12/26/23 09:30 levonorgestrel Allergy Verified 12/26/23 09:30 lisinopril Allergy Verified 12/26/23 09:30 Sulfa (Sulfonamide Allergy Verified 12/26/23 09:30 Antibiotics) tetracycline Allergy Verified 12/26/23 09:30 Exam Narrative: Exam Narrative: She is alert and appears in no distress. She is pleasant. She gives her own history but is unable to recall any of the events of today or the last few days. This history is obtained from her son. Head is without evidence of trauma. Eyes are normal. Extraocular movements are full. Pupils are equal round and reactive to light and accommodation. Visual rodriguez are intact. No facial asymmetry. Oropharynx is normal. Tongue is midline. Intact facial sensation bilaterally. Intact hearing bilaterally. Neck is supple without mass or adenopathy. Respirations are clear to auscultation. Cardiovascular: S1, S2, regular rate and rhythm. No murmur gallop or rub. Abdomen: Bowel sounds active. Abdomen is soft without tenderness or mass. External genitalia normal. Extremities are normal with intact pulses and sensation. Feet are slightly cool to touch with good capillary refill. No skin rash. Strength in upper and lower extremities is full and symmetric. Dvguyr-dsaa-rjuiil and heel-perales is normal. Const: Vital Signs, click to edit/add: Vital Signs - 24 hr 09/16/24 17:44 09/16/24 19:33 Temperature 98.1 F Pulse Rate [Right Radial] 90 93 Respiratory Rate 18 16 Blood Pressure [Ri ght Upper Arm] 180/82 H 145/84 H Pulse Oximetry 90 96 Oxygen Delivery Me thod Room Air Room Air Documenting provider has reviewed patient's vital signs: yes Hospitalist - H&P: Result Labs Labs: Short CBC 09/16/24 Range/Units 18:53 WBC 9.52 (4.50-11.00) K/uL Hgb 13.8 (12.0-16.0) gm/dL Hct 40.8 (33.0-51.0) % Plt Count 177 (140-440) K/uL BMP 09/16/24 18:53 Sodium 138 Potassium 3.7 Chloride 105 Carbon Dioxide 23 BUN 20 Creatinine 1.1 Glucose 95 Calcium 10.1 Liver Function 09/16/24 Range/Units 18:53 Total Bilirubin 0.7 (0.1-1.5) mg/dL AST 39 H (12-35) U/L ALT 32 (4-35) U/L Alkaline Phosphatase 82 (40-150) U/L Albumin 4.2 (3.3-5.0) g/dL Imaging CT scan - head: Radiologist's impression: INDICATION: Memory loss. TECHNIQUE: Non-contrast CT of the head is submitted. No comparisons. FINDINGS: The ventricles, sulci and gyri are of normal size, shape and contour. Midline structures are centrally located. No convincing evidence of intra- or extra-axial fluid collections. IMPRESSION: 1. No radiographic evidence of acute intracranial abnormalities.
[2024-09-16 21:44] VITALS: BMI 34.6
[2024-09-16 21:46] LABS: Appearance Urine Clear (Clear)
[2024-09-16 21:47] VITALS: BP 166/83; PULSE 92; RESP 16; TEMP 36.6; O2SAT 97
[2024-09-16 22:14] LABS: Cannabinoid Screen Urine Negative (Negative); Methamphetamines Screen Urine Negative (Negative); Tricyclic Antidepressant Urine Negative (Negative)
[2024-09-16 22:53] VITALS: PULSE 99
[2024-09-16 23:01] VITALS: BP 161/88; PULSE 99; RESP 16; TEMP 36.6; O2SAT 97
[2024-09-16] MEDS: ACETAMINOPHEN 325 MG TABLET 650 MG PO (23:17)
[2024-09-17 00:42] VITALS: PULSE 87
[2024-09-17 00:43] VITALS: PULSE 99; RESP 16
[2024-09-17 03:00] VITALS: BP 167/85; PULSE 81; RESP 18; TEMP 36.8; O2SAT 95
[2024-09-17 07:00] VITALS: PULSE 78; PULSE 81; RESP 16
--- NOTE | 2024-09-17 07:08 | PC.NURSE ---
[id number]: Pt pleasant, alert and oriented, though does have periods of confusion. Pt also repeats questions or statements periodically. Pt stated some distress surrounding the fact she cannot recall Tuesday. Nurse provided therapeutic conversation and redirection. VSS. Pt in bed, appears to be resting, call light within reach.? ?
[2024-09-17 08:00] VITALS: BP 152/95; PULSE 81; RESP 16; TEMP 36.6; O2SAT 97
[2024-09-17] MEDS: ATORVASTATIN CALCIUM 10 MG TABLET 20 MG PO (08:38)
[2024-09-17] MEDS: ASPIRIN 81 MG TABLET EC PO (08:38)
[2024-09-17] MEDS: METFORMIN 1,000 MG TABLET 1000 MG PO (08:38)
[2024-09-17] MEDS: ACETAMINOPHEN 325 MG TABLET 650 MG PO (08:39)
[2024-09-17] MEDS: METOPROLOL SUCCINATE (XL) 50 MG TAB PO (08:39)
[2024-09-17] MEDS: SODIUM CHLORIDE 0.9 % (FLUSH) 10 ML SYRINGE 5 ML IVF (08:40)
--- NOTE | 2024-09-17 10:44 | CRLHL7_ITS ---
For Patients: As a result of the Century Cures Act, medical imaging exams and procedure reports are released immediately into your electronic medical record. You may view this report before your referring provider. If you have questions, please contact your health care provider. Indication: Amnesia. Technique: MRI brain: Multiplanar multisequence MR imaging prior to and following intravenous administration of 20 mL Dotarem. MRA head: Gvup-ex-cromcr imaging acquired MRA neck: [id number] and postcontrast imaging following intravenous administration of 20 mL Dotarem. Comparison: CT brain 09/16/2024. Findings: MRI brain: Mild diffuse cerebral volume loss. No mass effect or midline shift. Scattered FLAIR hyperintensities in the supratentorial white matter, typical for mild chronic microvascular ischemic changes. No diffusion restriction to suggest acute infarction. No intracranial hemorrhage or pathologic extra-axial fluid collection. No pathologic intracranial enhancement. The major arterial flow voids of the skull base are preserved. Globes are symmetric. Mild paranasal sinus mucosal thickening. Mastoid air cells are clear. MRA head: The internal carotid, middle cerebral, and anterior cerebral arteries are widely patent. The hypoplastic right vertebral artery functionally terminates as the right posterior inferior cerebellar artery. The vertebral, basilar, and posterior cerebral arteries are widely patent. No intracranial aneurysm or high-flow vascular malformation. MRA neck: The innominate and subclavian arteries are widely patent. The common carotid arteries are widely patent. The internal carotid arteries are widely patent. The left vertebral artery is dominant and the right vertebral artery is hypoplastic. The right vertebral artery origin is suboptimally evaluated. The vertebral arteries are otherwise widely patent. Impression: MRI brain: 1. No acute intracranial abnormality. 2. Mild chronic microvascular ischemic changes and diffuse cerebral volume loss. MRA head/neck: 1. Unremarkable MRA of the head. 2. The hypoplastic right vertebral origin is suboptimally evaluated. Otherwise, widely patent cervical vasculature. Dictated by Sudheer Denton MD @ 09/17/2024 2:02:33 PM (Electronically Signed)
[2024-09-17 11:30] VITALS: BP 146/84; PULSE 87; RESP 16; O2SAT 95
--- NOTE | 2024-09-17 11:57 | P.DS_ITS ---
DS: Providers Provider Date Seen: 09/17/24 Date of admission: 09/16/24 20:06 Primary care physician: Tamie Le MD Admitting Clinician: Idris Goel MD Consults: 09/16/24 20:23 Consult to Occupational Therapy [CONS] Routine Comment: Reason(s) for OT Consult:: Evaluate and Treat Any Restrictions?:: No Restrictions Consult to Physical Therapy [CONS] Routine Comment: Reason(s) for PT Consult:: Evaluate and Treat Any Restrictions?:: No Restrictions Attending Physician on discharge: KAILEE Arzola, [facility] Date of Discharge: 09/17/24 DS: Diagnosis Discharge Diagnosis (1) Transient global amnesia: Status: Acute Problem details: Family reports an episode in November 2023 similar to current episode but of shorter duration. Seen in [facility] ED in [place] CT head shows no radiographic evidence of acute intracranial abnormalities. Tele neurology consult with Dr. Valerie Major, recommending MRI/MRA head and neck which reveal no acute findings. Will need outpatient EEG - to be scheduled by PCP (2) Hypertension: Status: Acute Problem details: Continue amlodipine, losartan, metoprolol (3) Diabetes mellitus type 2, controlled: Status: Acute Problem details: Hemoglobin A1c in May 2024 was 6.7. Continue metformin and Ozempic (4) Hyperlipidemia: Status: Acute Problem details: Continue statin DS: Summary Hospital Course Hospital Course: Course of care and details as noted above. Admitted for overnight observation following episode of what appears to be transient global amnesia. Recurrent. Symptoms resolving overnight, some recall of the day before but very minimal. Has remained vitally stable. Consult via tele Neurology, Dr. Major, recommending further imaging with MRI/MRA head and neck. Neurology also recommending outpatient follow-up with EEG. This can be scheduled through her PCP. Remainder of chronic medical comorbidities were monitored and managed with home medications. Status at Discharge Functional status at discharge: independent ambulation Overall status at discharge: patient is back to baseline Time Spent with Patient Time attestation: Total time spent providing and/or coordinating discharge services: Time spent: Greater than 30 minutes Exam Narrative: Exam Narrative: PHYSICAL EXAM General: Pleasant, conversant, NAD Cardiovascular: RRR Pulmonary: No dyspnea Neurological: Alert, answering questions appropriately, no focal findings this morning Skin: Warm, dry. Const: Vital Signs, click to edit/add: Vital Signs - 24 hr 09/16/24 17:44 09/16/24 19:33 09/16/24 21:47 Temperature 98.1 F 97.9 F Pulse Rate Pulse Rate [Pulse Oximeter] 92 Pulse Rate [Right Radial] 90 93 Respiratory Rate 18 16 16 Blood Pressure [Le ft Arm] 166/83 H Blood Pressure [Ri ght Upper Arm] 180/82 H 145/84 H Pulse Oximetry 90 96 97 Oxygen Delivery Me thod Room Air Room Air Room Air 09/16/24 22:53 09/16/24 23:01 09/17/24 00:42 Temperature 97.9 F Pulse Rate 99 87 Pulse Rate [Pulse Oximeter] 99 Pulse Rate [Right Radial] Respiratory Rate 16 Blood Pressure [Le ft Arm] 161/88 H Blood Pressure [Ri ght Upper Arm] Pulse Oximetry 97 Oxygen Delivery Ar thod Room Air 09/17/24 00:43 09/17/24 03:00 09/17/24 07:00 Temperature 98.2 F Pulse Rate 78 Pulse Rate [Pulse Oximeter] 99 81 Pulse Rate [Right Radial] Respiratory Rate 16 18 Blood Pressure [Le ft Arm] 167/85 H Blood Pressure [Ri ght Upper Arm] Pulse Oximetry 95 Oxygen Delivery Ar thod Room Air 09/17/24 07:00 09/17/24 08:00 09/17/24 11:30 Temperature 97.9 F Pulse Rate Pulse Rate [Pulse Oximeter] 81 81 87 Pulse Rate [Right Radial] Respiratory Rate 16 16 16 Blood Pressure [Le ft Arm] 152/95 H 146/84 H Blood Pressure [Ri ght Upper Arm] Pulse Oximetry 97 95 Oxygen Delivery Ar thod Room Air Room Air DS: Data Data Completed and Pending Labs on day of discharge: Labs from last 24 hours 09/16/24 09/16/24 09/16/24 21:36 20:08 18:53 WBC 9.52 RBC 4.42 Hgb 13.8 Hct 40.8 MCV 92 MCH 31 MCHC 34 RDW Coeff of Chris 11.4 L Plt Count 177 Neut % (Auto) 71.0 Lymph % (Auto) 20.8 [place] % (Auto) 6.4 Eos % (Auto) 1.3 Baso % (Auto) 0.3 Neut # (Auto) 6.76 Lymph # (Auto) 1.98 [place] # (Auto) 0.60 Eos # (Auto) 0.12 Baso # (Auto) 0.03 Abs Immat Gran (auto) 0.02 Imm/Tot Granulo (auto) 0.2 Sodium 138 Potassium 3.7 Chloride 105 Carbon Dioxide 23 Anion Gap 10 BUN 20 Creatinine 1.1 Estimated Creat Clear 35.49 Estimated GFR 53 Glucose 95 Lactate 2.6 H Calcium 10.1 Total Bilirubin 0.7 AST 39 H ALT 32 Alkaline Phosphatase 82 C-Reactive Protein < 0.5 L Total Protein 7.0 Albumin 4.2 TSH 0.544 Urine Color Yellow Urine Appearance Clear Urine pH 6.5 Ur Specific [place] <= 1.005 Urine Protein Negative Urine Glucose (UA) Negative Urine Ketones 1+ A Urine Blood Negative Urine Nitrite Negative Urine Bilirubin Negative Urine Urobilinogen 0.2 Ur Leukocyte Esterase 1+ A Urine RBC 0-2 Urine WBC 2-5 Ur Squamous Epith Cells None Urine Bacteria Few A Urine Opiates Screen Negative Ur Oxycodone Screen Negative Urine Methadone Screen Negative Ur Barbiturates Screen Negative U Tricyclic Antidepress Negative Ur Phencyclidine Scrn Negative Ur Amphetamines Screen Negative U Methamphetamines Scrn Negative U Benzodiazepines Scrn Negative Urine Cocaine Screen Negative U Marijuana (THC) Screen Negative Ur Drug Screen Comment See Note Ethyl Alcohol < 0.01 Lab Acknowledgement Test Added Preliminary micro results at discharge 09/16/24 21:36 Urine Culture - Preliminary Urine,Clean Catch Culture in Progress Imaging CT scan - head: Attestation: I have reviewed the pertinent imaging results. Radiologist's impression: FINDINGS: The ventricles, sulci and gyri are of normal size, shape and contour. Midline structures are centrally located. No convincing evidence of intra- or extra-axial fluid collections. IMPRESSION: 1. No radiographic evidence of acute intracranial abnormalities. MR Brain: Attestation: I have reviewed the pertinent imaging results. Radiologist's impression: MRI brain: Multiplanar multisequence MR imaging prior to and following intravenous administration of 20 mL Dotarem. MRA head: [id number] imaging acquired MRA neck: [id number] and postcontrast imaging following intravenous administration of 20 mL Dotarem. Comparison: CT brain 09/16/2024. Findings: MRI brain: Mild diffuse cerebral volume loss. No mass effect or midline shift. Scattered FLAIR hyperintensities in the supratentorial white matter, typical for mild chronic microvascular ischemic changes. No diffusion restriction to suggest acute infarction. No intracranial hemorrhage or pathologic extra-axial fluid collection. No pathologic intracranial enhancement. The major arterial flow voids of the skull base are preserved. Globes are symmetric. Mild paranasal sinus mucosal thickening. Mastoid air cells are clear. MRA head: The internal carotid, middle cerebral, and anterior cerebral arteries are widely patent. The hypoplastic right vertebral artery functionally terminates as the right posterior inferior cerebellar artery. The vertebral, basilar, and posterior cerebral arteries are widely patent. No intracranial aneurysm or high-flow vascular malformation. MRA neck: The innominate and subclavian arteries are widely patent. The common carotid arteries are widely patent. The internal carotid arteries are widely patent. The left vertebral artery is dominant and the right vertebral artery is hypoplastic. The right vertebral artery origin is suboptimally evaluated. The vertebral arteries are otherwise widely patent. Impression: MRI brain: 1. No acute intracranial abnormality. 2. Mild chronic microvascular ischemic changes and diffuse cerebral volume loss. MRA head/neck: 1. Unremarkable MRA of the head. 2. The hypoplastic right vertebral origin is suboptimally evaluated. Otherwise, widely patent cervical vasculature. Discharge Plan Discharge Disposition: Home, Self-Care Date of Admission: 09/16/24 20:06 Attending Provider on Discharge: Gladys Oates Consulting Providers: Valerie Major Primary Care Provider: Tamie Le Condition: Unchanged Anticipated Discharge Date/Time: 09/17/24 16:00 Discharge Medications: Continued atorvastatin 20 mg tablet 20 mg PO DAILY metoprolol succinate 50 mg tablet extended release 24 hr 50 mg PO DAILY amlodipine 5 mg tablet 5 mg PO DAILY aspirin 81 mg tablet,delayed release (DR/EC) 81 mg PO DAILY metformin 1,000 mg tablet 1,000 mg PO BID losartan 100 mg tablet 100 mg PO DAILY Ozempic 0.25 mg or 0.5 mg (2 mg/3 mL) pen injector 0.5 mg subcut .weekly pantoprazole 40 mg tablet,delayed release (DR/EC) 40 mg PO DAILY Discharge Orders: Discharge Order (Routine); Ordered 09/17/24 Ordered By: Gladys Oates Patient Education: Amnesia (GEN) Activity Level: No Restrictions and Activity as Tolerated Discharge Diet: Diabetic Follow Up Appointments: ARTUR URIBE DO [Referring, Family Practice] - 09/20/24 11:25 am Referral Note: [facility] for follow up. PCP is out of the office. Note was left for doctor that an EEG is needed. Forms: [employer] Info Instructions
--- NOTE | 2024-09-17 12:20 | NUTR.NU ---
RDN with nutrition screen for heart healthy diet. Patient admitted for transient global amnesia. Medical history includes, but not limited to hypertension, type 2 diabetes mellitus, hyperlipidemia, NAFLD, obesity, and depression. Current weight 190lbs, height 5ft 2in, and BMI 34.8 kg/m2. No recent weight history available for review at this time. Per prototype special build, patient consumed 100% of breakfast this morning. Patient lives with her son and [id number]. Heart healthy and diabetic diet education provided to son and [id number]. Discussed following a Mediterranean-style diet using the plate method that includes ? plate non-starchy vegetables and fruit, ? plate whole grains/starch, ? plate healthy protein (fish, poultry, legumes, nuts/seeds), and healthy fats. Discussed limiting saturated fat and sodium intake. Discussed basics of carbohydrate counting including sources of carbohydrates, serving sizes, and label reading. Discussed using the plate method for carbohydrate-controlled, balanced meals. Handouts provided to support discussion. RDN contact information provided and encouraged patient and her family to call with questions. RDN to follow up as needed. Plan is for discharge later today.
--- NOTE | 2024-09-17 14:15 | PC.NURSE ---
Pt doing well today. VSS. Pt reports mild headache, PRN Tylenol effective. Pt ambulating well independently. Tolerating regular diet. Blood glucose WNL. Pt denies dizziness or lightheadedness. Pt is A&Ox4, continues to be unsure of yesterday's events at home, can recall certain things from Tuesday morning. Pt has not had any moments of confusion this shift. Son at bedside. Pt resting well at this time.
== END 2024-09-17 14:39 | disposition home or self-care (01) ==
LOC: ED 19:56 → MEDSURG 20:06
PROVIDERS: Admitting Provider Family Medicine; Emergency Provider Family Medicine; PCP Family Medicine; Visit Provider Family Medicine
DX: G45.4 Transient global amnesia (principal); R41.0 Disorientation, unspecified; R51.9 Headache, unspecified; I67.82 Cerebral ischemia; R53.1 Weakness; E11.9 Type 2 diabetes mellitus without complications; K76.0 Fatty (change of) liver, not elsewhere classified; I10 Essential (primary) hypertension; Z79.85 Long-term (current) use of injectable non-insulin antidiabetic drugs; Z79.84 Long term (current) use of oral hypoglycemic drugs; Z79.82 Long term (current) use of aspirin; E66.9 Obesity, unspecified; Z68.34 Body mass index [BMI] 34.0-34.9, adult; F32.A Depression, unspecified; E78.5 Hyperlipidemia, unspecified; Z51.81 Encounter for therapeutic drug level monitoring; Z79.899 Other long term (current) drug therapy
CPT/HCPCS: 36415; 70450; 70544; 70549; 70553; 80053; 80306; 81001; 81003; 82077; 82962; 83605; 84443; 85025; 86140; 87086; 94761; 97161; 97165; 99284; 99285; A9270; A9575; G0378